=== PATIENT | male | born 2000 | race African-American/Black ===

== ENCOUNTER 2022-04-04 19:35 | Observation (INO) | payer OTHER, SELFPAY ==
[2022-04-04] MEDS ORDERED: Dextrose 50% Abboject 50 ML SYRINGE SLOW IVP PRN (20:33)
[2022-04-04] MEDS ORDERED: Dextrose 5% in Water 1,000 ML IV PRN (20:33)
[2022-04-04] MEDS ORDERED: Ondansetron PF 4 MG/2 ML Vial IVP PRN (20:33)
[2022-04-04] MEDS ORDERED: hydrALAZINE 20 MG/ML VIAL SLOW IVP PRN (20:33)
[2022-04-04] MEDS ORDERED: Acetaminophen 500 MG TAB PO PRN (20:36)
[2022-04-04 20:50] VITALS: BMI 27.1
[2022-04-04] MEDS ORDERED: Sodium Chloride 0.9% 1,000 ML IV SCH (21:00)
[2022-04-04] MEDS: Famotidine 20 MG TAB PO SCH (21:32)
[2022-04-04] MEDS: Sodium Chloride 0.9% 1,000 ML IV SCH (22:25)
[2022-04-05 06:04] LABS: #Basophils 0.1 thou/uL (0.0-0.2); #Eosinphils 0.1 thou/uL (0.0-0.7); #Lymphocytes 2.7 thou/uL (1.20-3.40); #Monocytes 0.6 thou/uL (0.11-0.59); #Neutrophils 4.2 thou/uL (1.40-6.50); %Basophils 0.8 % (0.0-1.0); %Eosinophils 1.6 % (0.0-10.0); %Lymphocytes 35.4 % (21.0-51.0); %Monocytes 7.3 % (0.0-10.0); Hemoglobin 13.4 g/dL (14.0-18.0); Mean Corpuscular HGB CONC 31.9 g/dL (32.0-36.0); Mean Corpuscular Hemoglobin 27.1 pg (27.0-31.0); Mean Corpuscular Volume 85.2 fL (78.0-98.0); Mean Platelet Volume 8.8 fL (7.4-10.4); Platelet Count 229 thou/uL (130-400); RBC Distribution Width 13.1 % (11.5-14.5); Red Blood Cell (RBC) Count 4.95 mill/uL (4.70-6.10); White Blood Cell (WBC) Count 7.7 thou/uL (4.8-10.8)
[2022-04-05] MEDS: Sodium Chloride 0.9% 1,000 ML IV SCH (06:26)
[2022-04-05 06:31] LABS: Anion Gap 10 mmol/L (10-20); BUN (Urea Nitrogen) 12 mg/dL (8.9-20.6); CK (CPK) 514 U/L (30-200); Calc. Creatinine Clearance 129 mL/min (70-130); Calcium 8.7 mg/dL (7.8-10.44); Carbon Dioxide 25 mmol/L (22-29); Chloride 109 mmol/L (98-107); Estimated GFR 92; Glucose 110 mg/dL (70-105); Magnesium 2.1 mg/dL (1.6-2.6); Potassium 3.8 mmol/L (3.5-5.1); Sodium 140 mmol/L (136-145)
[2022-04-05 07:24] VITALS: TEMP 98
[2022-04-05] MEDS ORDERED: Bacitracin 1 PK TOP SCH (09:00)
[2022-04-05] MEDS: Famotidine 20 MG TAB PO SCH (09:33)
[2022-04-05 11:20] VITALS: BP 134/73
== END 2022-04-05 13:31 | disposition home or self-care (01) ==
LOC: SURG A 19:35
PROVIDERS: ADMIT Surgery; ATTEND Surgery
DX: S06.5X0A Traumatic subdural hemorrhage without loss of consciousness, initial encounter (principal); S11.91XA Laceration without foreign body of unspecified part of neck, initial encounter; S41.112A Laceration without foreign body of left upper arm, initial encounter; S31.119A Laceration without foreign body of abdominal wall, unspecified quadrant without penetration into peritoneal cavity, initial encounter; N17.9 Acute kidney failure, unspecified; V86.69XA Passenger of other special all-terrain or other off-road motor vehicle injured in nontraffic accident, initial encounter
CPT/HCPCS: 36415; 70450; 80048; 82550; 83735; 84100; 85025; G0378; J7050; U0003; U0005